=== PATIENT | female | born 1985 | race Caucasian/White ===

== ENCOUNTER 2017-03-05 01:11 | Inpatient (IN) | payer BC ==
--- NOTE | 2017-03-05 01:53 | OBPROG ---
OBG Progress Note Assessment/Plan: Assessment:cat 1 fhr gilles 3 minutes apart 8/100/0 bag of water tub to assist with pain relief possible epidural for pain relief Plan:expectant management of labor 03/05/17 01:51 Subjective: To labor and delivery feeling regular contractions, + bloody show bag of water intact. cephalic on exam. - SVE Dilation (cm): 8 Effacement (%): 100 Station: 0 Current Contraction Pattern: Regular FHR (bpm): 135 FHR Pattern Variability: Moderate FHR Category: 1 Membranes: Intact ICD10 Worksheet Patient Problems: Problems Problem Status Onset labor term Acute
[2017-03-05] MEDS ORDERED: TERBUTALINE SULFATE 1 MG/ML VIAL IV PRN (01:56)
[2017-03-05] MEDS ORDERED: LIDOCAINE 1% 30 ML SDV SC PRN (01:56)
[2017-03-05] MEDS ORDERED: EPSOM SALT 454 GM TP PRN (01:56)
[2017-03-05] MEDS ORDERED: OLIVE OIL 118 ML BTL MISC PRN (01:56)
[2017-03-05] MEDS ORDERED: OXYTOCIN/RINGERS LACTATE 1,000 ML IV PRN (01:56)
[2017-03-05 02:14] LABS: % IMMATURE GRANULYOCYTES 0.6 % (0.0-1.1); ABSOLUTE IMMATURE GRANULOCYTES 0.13 10^3/uL (0.00-0.10); ADD DIFF? NO; ADD MORPH? NO; ADD SCAN? NO; ATYPICAL LYMPHOCYTE FLAG 0 (0-99); FRAGMENT RBC FLAG 0 (0-99); HEMATOCRIT 40.7 % (38.0-47.0); HEMOGLOBIN 14.2 g/dL (12.6-16.3); LEFT SHIFT FLG 0 (0-99); LIPEMIA HEMOLYSIS FLAG 90 (0-99); MEAN CELL HEMOGLOBIN 33.6 pg (27.9-34.1); MEAN CELL HEMOGLOBIN CONCENTR. 34.9 g/dL (32.4-36.7); MEAN CELL VOLUME 96.4 fL (81.5-99.8); MEAN PLATELET VOLUME 10.9 fL (8.7-11.7); PLATELET CLUMPS FLAG 10 (0-99); PLATELET COUNT 184 10^3/uL (150-400); RED BLOOD CELL COUNT 4.22 10^6/uL (4.18-5.33); RED CELL DISTRIBUTION WIDTH 13.1 % (11.5-15.2)
[2017-03-05] MEDS ORDERED: AMMONIA AROMATIC 1 EACH AMP IH ONE (02:23)
[2017-03-05] MEDS ORDERED: LIDOCAINE 1% 30 ML SDV ONE (02:23)
[2017-03-05] MEDS ORDERED: OLIVE OIL 118 ML BTL ONE (02:23)
[2017-03-05] MEDS ORDERED: MISOPROSTOL 200 MCG TAB ONE (02:24)
[2017-03-05] MEDS ORDERED: OXYTOCIN 10 UNIT/ML VIAL ONE (02:24)
[2017-03-05] MEDS ORDERED: fentaNYL 2MCG/ML/BUP 0.1% RTU 100 ML BAG EP ONE (02:28)
[2017-03-05] MEDS: LR 1,000 ML IV PRN ×2 (02:29→04:50)
--- NOTE | 2017-03-05 02:35 | OBPROG ---
OBG Progress Note Assessment/Plan: Assessment:cat 1 fhr gilles 3 minutes apart 8/100/0 bag of water tub to assist with pain relief possible epidural for pain relief iv begun for fluids before epidural Plan:requesting an epidural for pain relief 03/05/17 01:51 03/05/17 02:33 Subjective: I would like an epidural for pain relief Objective: 03/05/17 01:45 ICD10 Worksheet Patient Problems: Problems Problem Status Onset labor term Acute
[2017-03-05] MEDS ORDERED: PHENYLEPHRINE HCL 100 MCG/ML SYR ONE (03:04)
--- NOTE | 2017-03-05 03:17 | OBPROG ---
OBG Progress Note Assessment/Plan: Assessment:cat 1 fhr gilles 3 minutes apart 9/100/0 arom clear fluid epidural in place feeling better after placement pain on left side turned to the left side pain from a 10 to a 6 Plan:expectant management of labor 03/05/17 01:51 03/05/17 02:33 03/05/17 03:15 Subjective: Beginning to feel better after epidural placement Objective: 03/05/17 01:45 Patient ABO/Rh O POSITIVE 03/05/17 01:45 - SVE Dilation (cm): 9 Effacement (%): 100 Station: 0 Current Contraction Pattern: Regular FHR (bpm): 140 FHR Pattern Variability: Moderate FHR Category: 2 Membranes: AROM Amniotic Fluid Color: Clear ICD10 Worksheet Patient Problems: Problems Problem Status Onset labor term Acute
[2017-03-05] MEDS ORDERED: fentaNYL 2MCG/ML/BUP 0.1% RTU 100 ML EP SCH (03:30)
[2017-03-05] MEDS ORDERED: LR 500 ML IV SCH (03:30)
--- NOTE | 2017-03-05 04:54 | OBPROG ---
OBG Progress Note Assessment/Plan: Assessment:cat 1 fhr gilles 3 minutes apart 10/100/+2 scalp stim moderate variability response arom clear fluid epidural in place feeling better after placement pain on left side turned to the left side pain well managed Plan:will begin pushing 03/05/17 01:51 03/05/17 02:33 03/05/17 03:15 03/05/17 04:52 Subjective: doing well denies pain . Comfortable with epidural Objective: 03/05/17 01:45 Patient ABO/Rh O POSITIVE 03/05/17 01:45 - SVE Dilation (cm): 10 Effacement (%): 100 Station: +2 Current Contraction Pattern: Regular FHR (bpm): 145 FHR Pattern Variability: Moderate FHR Category: 2 Amniotic Fluid Color: Clear ICD10 Worksheet Patient Problems: Problems Problem Status Onset labor term Acute
--- NOTE | 2017-03-05 06:30 | OBPROG ---
OBG Progress Note Assessment/Plan: Assessment:cat 2 fhr gilles 3 minutes apart 10/100/+2 slow descent with pushing/ will labor down for awhile to assist with descent of the head clear fluid bolus to assist with left sided pain pain on left side turned to the left side feeling pressure with pushing Plan:laboring down slow descent of the head 03/05/17 01:51 03/05/17 02:33 03/05/17 03:15 03/05/17 04:52 03/05/17 06:28 Objective: 03/05/17 01:45 Patient ABO/Rh O POSITIVE 03/05/17 01:45 - SVE Dilation (cm): 10 Effacement (%): 100 Station: +1 FHR (bpm): 140 FHR Pattern Variability: Moderate FHR Category: 2 Membranes: SROM Amniotic Fluid Color: Clear ICD10 Worksheet Patient Problems: Problems Problem Status Onset labor term Acute
--- NOTE | 2017-03-05 06:46 | GHP ---
[f rep st] HISTORY AND PHYSICAL DATE OF ADMISSION: 03/05/2017 HISTORY OF PRESENT ILLNESS: The patient is a 31-year-old, 1, para 0, with an EDC of 017, which gives her a gestational age of 40 and 3/7th weeks, who comes into Labor and Delivery with regular contractions since 1930 on 03/04/2017. States feeling positive movement. Denies rup ture of membranes. Positive bloody show. She has been seeking routine care with [facility] re since 10 weeks, 6 days, with an early ultrasound that did not confirm dates, and dates were [facility] hospital ed to 03/02/2017. MEDICAL HISTORY: Benign. SURGICAL HISTORY: Previous dental surgery on gums. FAMILY HISTORY: Noncontributory. SOCIAL HISTORY: Patient is . Significant other's name is Sohail. No smoking history, no jaydon g use history. GYNECOLOGICAL HISTORY: Previous OCP an IUD use, a LEEP in 2013 for an abnormal Pap smear. PHYSICAL ASSESSMENT: GENERAL: Patient is awake, alert, oriented x3. LUNGS: Clear bilaterally. A BDOMEN: Bowel sounds are positive in all 4 quadrants. EXTREMITIES: DTRs are 1+ bilaterally with n egative clonus. Homans are negative bilaterally. On palpation, uterus firm with contractions q.2 to 3 minutes apart. Exam: Patient is 8, 100, 0 sta tion, bag of rizzo intact. Patient requesting to get into the tub to assist with pain relief as we ll as a possible epidural for pain relief. LABORATORY DATA: Patient is O positive, antibody negative. RPR is nonreactive. Rubella is immune. Hepatitis is negative. HIV is negative. Pap was within normal limits with negative HPV on 2015. Gonorrhea and chlamydia are negative. Verifi is negative. Patient is GBS negative. One bladimir r GTT was within normal limits. The patient had a hematocrit at 34 weeks of 38. PLAN OF CARE: 1. GBS negative. 2. Tub to assist with pain relief. 3. Intermittent auscultation. 4. Possible epidural for pain relief at patient's request. /[id number]/MODL
--- NOTE | 2017-03-05 08:24 | OBPROG ---
OBG Progress Note Assessment/Plan: Assessment:cat 2 fhr variables with pushing gilles 3 minutes apart 10/100/+2 slow descent with pushing. beginning to see head with pushing at the perineum clear fluid vaginally left sided pain diminished feeling pressure with pushing Plan:slow descent of head with pushing 03/05/17 01:51 03/05/17 02:33 03/05/17 03:15 03/05/17 04:52 03/05/17 06:28 03/05/17 08:22 Subjective: doing well with pushing Objective: 03/05/17 01:45 Patient ABO/Rh O POSITIVE 03/05/17 01:45 Current Contraction Pattern: Regular FHR (bpm): 135 FHR Pattern Variability: Moderate FHR Category: 2 Amniotic Fluid Color: Clear ICD10 Worksheet Patient Problems: Problems Problem Status Onset labor term Acute
[2017-03-05] MEDS ORDERED: HYDROCODONE/APAP 5/325 TAB PO PRN (10:07)
[2017-03-05] MEDS ORDERED: SIMETHICONE 80 MG TAB CHEW PO PRN (10:07)
[2017-03-05] MEDS ORDERED: ACETAMINOPHEN 325 MG TAB PO PRN (10:07)
[2017-03-05] MEDS ORDERED: HYDROCORTISONE 0.5% CREAM TP PRN (10:07)
--- NOTE | 2017-03-05 10:07 | OBPROC ---
- Labor and Delivery Onset of Contractions Date: 03/05/17 Onset of Contractions Time: 19:30 Onset of Contractions Type: Spontaneous Rupture of Membranes Date: 03/05/17 Rupture of Membranes Time: 03:05 Rupture of Membranes Type: Artificial Amniotic Fluid Color: Meconium Stained-Light Delivery Type: Spontaneous Placenta Delivery Date: 03/05/17 Placenta Delivery Time: 09:51 Episiotomy/Laceration: 2nd Degree Repair: 3-0, Vicryl EBL: 300 - Medications Anesthesia: Epidural - [place] Info Infant A Delivery Date: 03/05/17 Delivery Time: 09:48 Sex of Infant: Female Score (1 Min): 8 Score (5 Min): 9
[2017-03-05] MEDS: IBUPROFEN 600 MG TAB PO PRN ×2 (10:23→16:40)
[2017-03-05 13:37] VITALS: RESP 16
[2017-03-06] MEDS: IBUPROFEN 600 MG TAB PO PRN ×4 (00:06→20:06)
--- NOTE | 2017-03-06 10:48 | OBPROG ---
OBG Progress Note Assessment/Plan: Assessment: 31 y/o PPD #1 s/p doing well. Plan: : support today. Epsom salt baths and routine PPC. 03/06/17 10:47 Subjective: Pt is doing well this am. She has min cramping and perineal soreness controlled with Ibuprofen. Min lochia, mod cramping and breast feeding is going well. Objective: Patient ABO/Rh O POSITIVE 03/05/17 01:45 Temp Pulse Resp BP Pulse Ox 36.3 C 78 16 105/65 94 03/05/17 20:00 03/05/17 20:00 03/05/17 20:00 03/05/17 20:00 03/05/17 20:00 Uterine Position/Fundal Height: Umbilicus -2 Uterine Tone: Firm - Physical Exam General Appearance: WD/WN, alert, no apparent distress Neck: non-tender, full range of motion, supple Respiratory: chest non-tender, lungs clear, normal breath sounds Cardiac/Chest: regular rate, rhythm Abdomen: normal bowel sounds Extremities: swelling (no), Caroline's sign (neg) ICD10 Worksheet Patient Problems: Problems Problem Status Onset labor term Acute
[2017-03-06] MEDS: DOCUSATE SODIUM 100 MG CAP PO PRN ×2 (13:59→20:06)
[2017-03-07] MEDS: IBUPROFEN 600 MG TAB PO PRN ×2 (02:11→08:32)
[2017-03-07] MEDS: DOCUSATE SODIUM 100 MG CAP PO PRN (08:32)
--- NOTE | 2017-03-07 11:11 | SOAPPROG ---
SOAP Progress Note Assessment/Plan: Assessment: PPD 2 s/p Plan: D/C home 03/07/17 11:10 Subjective: Pt doing well. Bld has decreased. Baby is latching well. urinating fine. Bottom sore but manged with ibu. Objective: Vital Signs Temp Pulse Resp BP Pulse Ox 36.3 C 81 16 112/77 92 03/06/17 19:19 03/06/17 19:19 03/06/17 19:19 03/06/17 19:19 03/06/17 19:19 Laboratory Results 03/06/17 07:27 03/06/17 03/07/17 03/08/17 05:59 05:59 05:59 Output Total 300 Balance -300 Physical Exam - Physical Exam General Appearance: WD/WN Abdomen: non-tender, soft, other (FF at umb -1) Pelvic Exam: vaginal bleeding (normal lochia) Extremities: non-tender, pedal edema (minimal) Neuro/Psych: normal mood/affect ICD10 Worksheet Patient Problems: Problems Problem Status Onset (spontaneous vaginal delivery) Acute
[2017-03-07 11:16] VITALS: BP 112/79; PULSE 73; TEMP 98.2; O2SAT 95
--- NOTE | 2017-03-07 12:28 | SOAPPROG ---
SOAP Progress Note Assessment/Plan: Assessment: Up and out of bed, voiding well, taking PO. No evidence for LAST. No systemic itching or residual numbness/weakness. Plan: Continue routine cares. 03/07/17 12:28 Subjective: S/P labor epidural. Subjectively feeling well. Objective: Vital Signs Temp Pulse Resp BP Pulse Ox 36.8 C 73 16 112/79 95 03/07/17 08:20 03/07/17 08:20 03/07/17 08:20 03/07/17 08:20 03/07/17 08:20 Laboratory Results 03/06/17 07:27 03/06/17 03/07/17 03/08/17 05:59 05:59 05:59 Output Total 300 Balance -300 ICD10 Worksheet Patient Problems: Problems Problem Status Onset (spontaneous vaginal delivery) Acute
== END 2017-03-07 12:40 | disposition home or self-care (01) | DRG 775 ==
LOC: FLD 01:11 → OBSVTOIN 01:11 → FOB 13:08
PROVIDERS: ADMIT Advanced Practice Midwife; ATTEND Advanced Practice Midwife
DX: O70.1 Second degree perineal laceration during delivery (principal); Z37.0 Single live birth; Z3A.40 40 weeks gestation of pregnancy
CPT/HCPCS: J2370; J2590